=== PATIENT | male | born 1965 | race African-American/Black ===

== ENCOUNTER 2017-01-04 07:21 | Day surgery (SDC) | payer MEDICARE, OTHER ==
[~2017-01-04] VITALS: Ht 177.8 cm; Wt 91.6 kg
[2017-01-04 08:15] LABS: HEMOGLOBIN 14.9 gm/dl (14.0-17.5); WHITE BLOOD COUNT 10.5 K/UL (4.5-11.0)
[2017-01-04 08:16] LABS: RED BLOOD COUNT 7.01 M/UL (4.20-5.50)
[2017-01-04] MEDS ORDERED: NORVASC 5 MG TAB5 MG PO (09:31)
[2017-01-04] MEDS ORDERED: LISINOPRIL40 MG PO (09:32)
[2017-01-04] MEDS ORDERED: TENORMIN 25 MG25 MG PO (09:33)
[2017-01-04] MEDS ORDERED: NEURONTIN 400400 MG PO (09:34)
[2017-01-04 22:05] LABS: BUN/CREATININE RATIO 13 (0-10)
[2017-01-05 06:55] LABS: BUN/CREATININE RATIO 11 (0-10)
[2017-01-05] MEDS ORDERED: MS CONTIN TAB S15 MG PO (19:50)
[2017-01-05] MEDS ORDERED: PERCOCET 10-321 EACH PO (19:51)
[2017-01-05] MEDS ORDERED: KEFLEX500 MG PO (19:52)
[2017-01-05] MEDS ORDERED: ASPIRIN325 MG PO (19:52)
[2017-01-05] MEDS ORDERED: IBUPROFEN800 MG PO (19:53)
[2017-01-05] MEDS ORDERED: VITAMIN C500 M1 PO (19:53)
[2017-06-07] MEDS ORDERED: PHENERGAN 25 MG25 M1 PO (07:49)
[2017-06-07] MEDS ORDERED: HYDROCHLOROTHIA25 MG PO (07:49)
[2017-06-07] MEDS ORDERED: OMEPRAZOLE20 MG PO (07:50)
[2017-06-07] MEDS ORDERED: LISINOPRIL30 MG PO (07:55)
[2017-06-07] MEDS ORDERED: PROVENTIL HFA 61 INH INH (07:56)
[2017-06-07] MEDS ORDERED: ALBUTEROL0.63 MG/3 INH (07:57)
[2017-06-07] MEDS ORDERED: VITAMIN C 500500 MG PO (11:24)
[2017-06-07] MEDS ORDERED: VITAMIN D400 UNI2 PO (11:25)
[2017-06-07] MEDS ORDERED: KEFLEX500 MG PO (11:26)
[2017-06-07] MEDS ORDERED: IBUPROFEN800 MG PO (11:26)
[2017-06-07] MEDS ORDERED: PERCOCET 10-321 EACH PO (11:27)
== END 2017-01-06 06:13 | disposition home or self-care (01) ==
LOC: M/S 07:21 → OR 07:21 → M/S 13:13 → OR 01-06 06:13
PROVIDERS: Podiatrist Foot & Ankle Surgery
PROC: 0L8P0ZZ Division of Left Lower Leg Tendon, Open Approach (ICD-10-PCS; principal; 2017-01-04 12:15)
PROC: 0J8R0ZZ Division of Left Foot Subcutaneous Tissue and Fascia, Open Approach (ICD-10-PCS; 2017-01-04 12:15)
PROC: 0SU Lower Joints, Supplement (ICD-10-PCS; 2017-01-04 12:15)
DX: M72.2 Plantar fascial fibromatosis (principal); M21.6X2 Other acquired deformities of left foot; M20.22 Hallux rigidus, left foot; M19.072 Primary osteoarthritis, left ankle and foot; Q66.89 Other specified congenital deformities of feet; I10 Essential (primary) hypertension; J45.909 Unspecified asthma, uncomplicated; K21.9 Gastro-esophageal reflux disease without esophagitis; M19.90 Unspecified osteoarthritis, unspecified site; Z80.1 Family history of malignant neoplasm of trachea, bronchus and lung; Z79.899 Other long term (current) drug therapy; Z88.6 Allergy status to analgesic agent; Z88.8 Allergy status to other drugs, medicaments and biological substances; Z87.11 Personal history of peptic ulcer disease; Z86.73 Personal history of transient ischemic attack (TIA), and cerebral infarction without residual deficits
CPT/HCPCS: 36415; 73630; 76000; 80048; 85025; C1776; J0690; J1650; J1885; J2250; J2795; J3370; J7120

== ENCOUNTER 2020-11-13 13:26 | Emergency (ER) | payer MEDICARE, OTHER ==
[~2020-11-13 13:26] MED LIST: ALBUTEROL0.63 MG/3 INH; ALLEGRA ALLERG180 MG PO; AMITIZA24 MCG PO; AMLODIPINE BESYL5 MG PO; ASPIR-LOW81 MG PO; ASPIRIN 325MG325 MG PO; ASPIRIN EC325 MG PO; ASPIRIN EC81 MG PO; ASPIRIN325 MG PO; ATENOLOL50 MG PO; ATORVASTATIN CA40 MG PO; BENTYL 20MG TAB20 MG PO; COMPAZINE10 MG PO; DESYREL 50 MG T50 MG PO; DULERA 200 MCG8.8 GM INH; ECOTRIN325 MG PO; ECOTRIN81 MG PO; FEXOFENADINE H180 MG PO; FLORASTOR250 MG PO; GABAPENTIN300 MG PO; GABAPENTIN400 MG PO; GABAPENTIN800 MG PO; HYDRALAZINE HCL10 MG PO; HYDRALAZINE HCL25 MG PO; HYDRALAZINE HCL50 MG PO; HYDROCHLOROTH12.5 MG PO; HYDROCHLOROTHIA25 MG PO; IBUPROFEN600 MG PO; IBUPROFEN800 MG PO; KEFLEX CAP 500500 MG PO; KEFLEX500 MG PO; KLONOPIN0.5 MG PO; KLONOPIN1 MG PO; LISINOPRIL30 MG PO; LISINOPRIL40 MG PO; LMX 430 GM TOP; MENS ONE A DAY; MINIPRESS2 MG PO; MS CONTIN TAB S15 MG PO; NAPROXEN 250 M250 MG PO; NEURONTIN 400400 MG PO; NEURONTIN600 MG PO; NORCO 10-325 T1 EACH PO; NORVASC 5 MG TAB5 MG PO; NORVASC10 MG PO; OMEPRAZOLE20 MG PO; OMEPRAZOLE40 MG PO; OMNICEF 300 MG300 MG PO; PANTOPRAZOLE SO40 MG PO; PERCOCET 10-321 EACH PO; PHENERGAN 25 MG25 M1 PO; PRAZOSIN HCL1 MG PO; PROTONIX40 MG PO; PROVENTIL HFA 61 INH INH; PROVENTIL HFA6.7 GM INH; ROBITUSSIN AC480 ML PO; TAMIFLU75 MG PO; TENORMIN 25 MG25 MG PO; TENORMIN 50 MG50 MG PO; TENORMIN50 MG PO; TRAZODONE HCL100 MG PO; VENTOLIN HFA 66.7 GM INH; VIT C PO; VIT D PO; VITAMIN B-121000 MCG PO; VITAMIN B12; VITAMIN C 500500 MG PO; VITAMIN C500 M1 PO; VITAMIN C500 M4 PO; VITAMIN D250000 UNIT PO; VITAMIN D400 UNI2 PO; VOLTAREN100 GM TP; VRAYLAR PO; Voltaren Gel 1 % TOP
[2021-01-29] MEDS ORDERED: HYDRALAZINE HCL10 MG PO (06:49)
[2021-01-29] MEDS ORDERED: HYDROCHLOROTHIA25 MG PO (06:49)
[2021-04-08] MEDS ORDERED: ATENOLOL50 MG PO (14:57)
== END 2020-11-13 17:03 | disposition home or self-care (01) ==
LOC: ER1 13:26
DX: M51.36 Other intervertebral disc degeneration, lumbar region (principal)
CPT/HCPCS: 72100; 99283

== ENCOUNTER 2020-12-16 10:19 | Emergency (ER) | payer MEDICARE, OTHER ==
[2020-12-16] MEDS ORDERED: CEPHALEXIN500 M1 PO (16:12)
[2021-01-29] MEDS ORDERED: HYDRALAZINE HCL10 MG PO (06:49)
[2021-01-29] MEDS ORDERED: HYDROCHLOROTHIA25 MG PO (06:49)
[2021-04-08] MEDS ORDERED: ATENOLOL50 MG PO (14:57)
== END 2020-12-16 16:43 | disposition home or self-care (01) ==
LOC: ER1 10:19
DX: L60.0 Ingrowing nail (principal); L85.1 Acquired keratosis [keratoderma] palmaris et plantaris; I10 Essential (primary) hypertension; Z88.5 Allergy status to narcotic agent; J45.909 Unspecified asthma, uncomplicated
CPT/HCPCS: 11730; 99283

== ENCOUNTER → 2021-01-27 | Outpatient (CLI) | payer MEDICARE, OTHER ==
[~2021-01-27] MED LIST changes: +CEPHALEXIN500 M1 PO
[2021-01-27 08:18] LABS: HEMOGLOBIN 14.3 gm/dl (14.0-17.5); RED BLOOD COUNT 6.64 M/UL (4.20-5.50)
[2021-01-27 08:39] LABS: BUN/CREATININE RATIO 15 (0-10)
== END ==
LOC: OPSV2 07:35
PROVIDERS: Podiatrist Foot & Ankle Surgery
DX: M20.41 Other hammer toe(s) (acquired), right foot (principal)
CPT/HCPCS: 36415; 80048; 85027; 93005

== ENCOUNTER → 2021-01-29 | Day surgery (SDC) | payer MEDICARE, OTHER | END | disposition home or self-care (01) | LOC: OR 05:36 | PROVIDERS: Podiatrist Foot & Ankle Surgery | PROC: 0SGP04Z Fusion of Right Toe Phalangeal Joint with Internal Fixation Device, Open Approach (ICD-10-PCS; principal; 2021-01-29 07:45) | DX: M20.41 Other hammer toe(s) (acquired), right foot (principal); I10 Essential (primary) hypertension; K21.9 Gastro-esophageal reflux disease without esophagitis; E78.5 Hyperlipidemia, unspecified; E53.8 Deficiency of other specified B group vitamins; E55.9 Vitamin D deficiency, unspecified; E78.2 Mixed hyperlipidemia; J45.909 Unspecified asthma, uncomplicated; F17.200 Nicotine dependence, unspecified, uncomplicated; M19.90 Unspecified osteoarthritis, unspecified site; G62.9 Polyneuropathy, unspecified; Z88.6 Allergy status to analgesic agent; Z88.5 Allergy status to narcotic agent; Z79.82 Long term (current) use of aspirin; Z79.891 Long term (current) use of opiate analgesic; Z79.899 Other long term (current) drug therapy; Z86.73 Personal history of transient ischemic attack (TIA), and cerebral infarction without residual deficits; Z20.822 Contact with and (suspected) exposure to COVID-19 | CPT/HCPCS: 73630; 76000; C1713; J0690; J2001; J2250; J2405; J2704; J2795; J3010; J3370; J7120 ==

== ENCOUNTER → 2021-03-02 | Outpatient (CLI) | payer MEDICARE, OTHER | LOC: KOH-I 08:28 | DX: M20.41 Other hammer toe(s) (acquired), right foot (principal); Z98.1 Arthrodesis status | CPT/HCPCS: 73630 ==

== ENCOUNTER → 2021-03-22 | Outpatient (CLI) | payer OTHER | LOC: KOH-I 10:54 | DX: G89.28 Other chronic postprocedural pain (principal); M79.671 Pain in right foot; Z47.89 Encounter for other orthopedic aftercare | CPT/HCPCS: 73630 ==

== ENCOUNTER → 2021-04-13 | Outpatient (CLI) | payer OTHER ==
[2021-04-13 14:17] LABS: HEMOGLOBIN 14.5 gm/dl (14.0-17.5); RED BLOOD COUNT 6.57 M/UL (4.20-5.50); WHITE BLOOD COUNT 9.3 K/UL (4.5-11.0)
[2021-04-18 21:10] LABS: 25-HYDROXY, VITAMIN D-3 6.2 ng/mL (.)
== END ==
LOC: LAB 13:45
PROVIDERS: Emergency Medicine
DX: I10 Essential (primary) hypertension (principal); E78.2 Mixed hyperlipidemia; E53.8 Deficiency of other specified B group vitamins; E55.9 Vitamin D deficiency, unspecified
CPT/HCPCS: 36415; 80053; 82306; 82607; 85025

== ENCOUNTER → 2021-04-16 | Day surgery (SDC) | payer OTHER | END | disposition home or self-care (01) | LOC: OR 06:54 | DX: M20.42 Other hammer toe(s) (acquired), left foot (principal); M24.575 Contracture, left foot; M19.072 Primary osteoarthritis, left ankle and foot; L84 Corns and callosities; G89.29 Other chronic pain; G62.9 Polyneuropathy, unspecified; I10 Essential (primary) hypertension; J44.9 Chronic obstructive pulmonary disease, unspecified; K21.9 Gastro-esophageal reflux disease without esophagitis; E53.8 Deficiency of other specified B group vitamins; E78.2 Mixed hyperlipidemia; E55.9 Vitamin D deficiency, unspecified; Z88.5 Allergy status to narcotic agent; Z88.6 Allergy status to analgesic agent; Z88.8 Allergy status to other drugs, medicaments and biological substances; Z79.899 Other long term (current) drug therapy | CPT/HCPCS: 73630; 76000; 93005; C1713; J1170; J2001; J2250; J2405; J2704; J2795; J3010; J3370; J7120 ==

== ENCOUNTER → 2021-11-04 | Outpatient (CLI) | payer OTHER | LOC: KOH-I 08:49 | DX: M79.672 Pain in left foot (principal); M79.671 Pain in right foot | CPT/HCPCS: 73630 ==